=== PATIENT | female | born 1975 | race Caucasian/White ===

== ENCOUNTER 2022-01-10 10:27 | Outpatient (CLI) | payer OTHER ==
[2022-01-10 11:29] LABS: Hemoglobin 8.6 g/dL (12.0-15.5); Mean Corpuscular HGB CONC 30.1 g/dL (32.0-36.0); Mean Corpuscular Hemoglobin 21.2 pg (27.0-33.0); Mean Corpuscular Volume 70.4 fl (81.6-98.3); Platelet Count 137 10x3/uL (150-450); RBC Distribution Width 20.5 % (11.5-14.5); Red Blood Cell (RBC) Count 4.06 10x6/uL (3.90-5.03); White Blood Cell (WBC) Count 7.3 10x3/uL (3.5-10.5)
[2022-01-10 11:33] LABS: BHCG - Serum Negative (NEGATIVE); Pregs Control Background? CLEAR/WHITE (CLR/WHITE); Pregs Control Bar Appear? YES (CONTROL BAR)
[2022-01-10 11:43] LABS: Anion Gap 14 mmol/L (10-20); BUN (Urea Nitrogen) 16 mg/dL (7.0-18.7); Calc. Creatinine Clearance 0 mL/min (70-130); Calcium 9.3 mg/dL (7.8-10.44); Carbon Dioxide 21 mmol/L (22-29); Chloride 106 mmol/L (98-107); Glucose 80 mg/dL (70-105); Potassium 4.3 mmol/L (3.5-5.1); Sodium 137 mmol/L (136-145)
== END 2022-01-10 10:28 | disposition home or self-care (01) ==
LOC: CSHLAB 10:27
PROVIDERS: ATTEND Student in an Organized Health Care Education/Training Program
DX: Z01.818 Encounter for other preprocedural examination (principal); Z20.822 Contact with and (suspected) exposure to COVID-19; N92.0 Excessive and frequent menstruation with regular cycle
CPT/HCPCS: 80048; 84703; 85027; 93005; 93010; U0003; U0005

== ENCOUNTER 2022-01-15 09:36 | Day surgery (SDC) | payer OTHER ==
[2022-01-10 14:13] VITALS: BMI 33.9
[2022-01-15] MEDS ORDERED: Lidocaine 1% MPF 2 ML VIAL ONE (09:47)
[2022-01-15] MEDS ORDERED: CeleCOXIB 100 MG CAP ONE (09:47)
[2022-01-15] MEDS ORDERED: Gabapentin 300 MG CAP ONE (09:47)
[2022-01-15] MEDS ORDERED: Pantoprazole 40 MG VIAL ONE (09:47)
[2022-01-15] MEDS ORDERED: Levofloxacin 500 mg/D5W 100 ml Premix Bag ONE (10:24)
[2022-01-15] MEDS ORDERED: Fentanyl 100 MCG/2 ML VIAL ONE ×2 (11:33→14:09)
[2022-01-15] MEDS ORDERED: PROPOFOL 20 ML ONE (11:33)
[2022-01-15] MEDS ORDERED: Lidocaine 1% PF 5 ML VIAL ONE (11:33)
[2022-01-15] MEDS ORDERED: Ondansetron PF 4 MG/2 ML Vial ONE (11:34)
[2022-01-15] MEDS ORDERED: Rocuronium Bromide 10 MG/ML (10ML VIAL) ONE (11:34)
[2022-01-15] MEDS ORDERED: Dexamethasone 4 mg/ml Vial ONE (11:34)
[2022-01-15] MEDS ORDERED: EPINEPHrine 1 MG/ML AMP ONE (11:37)
[2022-01-15] MEDS ORDERED: Bupivacaine PF 0.5% 30 ML VIAL ONE (11:38)
[2022-01-15] MEDS ORDERED: Midazolam HCl 2 mg/2 ml Vial ONE (12:19)
[2022-01-15] MEDS ORDERED: Clindamycin/D5W 900 MG in Premix Bag 1 BAG IVPB SCH (12:45)
[2022-01-15] MEDS ORDERED: Glycopyrrolate 0.2 MG/ML 5 ML SYRINGE ONE (13:37)
[2022-01-15] MEDS ORDERED: HYDROcodone/Acetaminophen 5/325 mg Tablet ONE (16:25)
== END 2022-01-15 16:55 | disposition home or self-care (01) ==
LOC: CSHSDC 09:36
PROVIDERS: ATTEND Student in an Organized Health Care Education/Training Program
PROC: 0UT74ZZ Resection of Bilateral Fallopian Tubes, Percutaneous Endoscopic Approach (ICD-10-PCS; principal; 2022-01-15)
PROC: 8E0W8CZ Robotic Assisted Procedure of Trunk Region, Via Natural or Artificial Opening Endoscopic (ICD-10-PCS; principal; 2022-01-15)
PROC: 0UT24ZZ Resection of Bilateral Ovaries, Percutaneous Endoscopic Approach (ICD-10-PCS; principal; 2022-01-15)
PROC: 0UT94ZZ Resection of Uterus, Percutaneous Endoscopic Approach (ICD-10-PCS; principal; 2022-01-15)
DX: N80.0 Endometriosis of uterus (principal); D25.9 Leiomyoma of uterus, unspecified; N83.291 Other ovarian cyst, right side; N83.292 Other ovarian cyst, left side; N83.8 Other noninflammatory disorders of ovary, fallopian tube and broad ligament; N87.9 Dysplasia of cervix uteri, unspecified; N88.8 Other specified noninflammatory disorders of cervix uteri; I10 Essential (primary) hypertension; N95.1 Menopausal and female climacteric states; Z86.73 Personal history of transient ischemic attack (TIA), and cerebral infarction without residual deficits; Z79.899 Other long term (current) drug therapy; Z88.0 Allergy status to penicillin
CPT/HCPCS: 36415; 86850; 86900; 86901; 88307; C9113; J0171; J1100; J1956; J2250; J2405; J2704; J3010; J3490; S0020